=== PATIENT | female | born 1975 | race Caucasian/White ===

== ENCOUNTER 2020-05-09 11:40 | Outpatient (REF) | payer OTHER, SELFPAY ==
[2020-05-09 12:23] LABS: MANUAL DIFF FLAG NO
[2020-05-09 12:28] LABS: Basophils Absolute Auto 0.1 X10*3/uL (0.0-0.2); Basophils Percent Auto 0.7 % (0-2); Eosinophils Absolute Auto 0.1 X10*3/uL (0.0-0.4); Eosinophils Percent Auto 1.9 % (0-4); Hematocrit 39.6 % (37-47); Hemoglobin 13.3 g/dl (12.0-16.0); Imm Gran Abs Auto 0.04 X10*3/uL (0.00-0.03); Imm Gran Pct Auto 0.5 % (0.0-0.4); Lymphocytes Absolute Auto 2.6 X10*3/uL (1.2-4.9); Lymphocytes Percent Auto 35.1 % (20-40); Mean Corpuscular HGB Conc 33.6 g/dl (31.0-35.0); Mean Corpuscular Hemoglobin 30.1 pg (27.0-33.0); Mean Corpuscular Volume 89.6 fL (80-98); Mean Platelet Volume 9.3 fL (9.4-12.3); Monocytes Absolute Auto 0.5 X10*3/uL (0.1-1.2); Monocytes Percent Auto 6.3 % (2-11); Neutrophils Absolute Auto 4.2 X10*3/uL (2.0-8.3); Neutrophils Percent Auto 55.5 % (45-73); Platelet Count 336 X10*3/uL (160-400); Red Blood Count 4.42 X10*6/uL (4.20-5.50); Red Cell Distribution Width 11.9 % (11.0-16.0); White Blood Count 7.5 X10*3/uL (4.8-10.8)
[2020-05-09 12:48] LABS: Glucose Urine UA NEG (NEG); Leukocyte Esterase Urine NEG (NEG); Nitrite Urine NEG (NEG); PH 5.5 (5.0-8.0); Urine Blood NEG (NEG); Urine Ketones NEG (NEG); Urine Protein NEG (NEG-TRACE)
[2020-05-09 12:53] LABS: Alanine Aminotransferase 13 U/L (0-31); Albumin Level 4.4 g/dL (3.5-5.0); Alkaline Phosphatase 44 U/L (39-117); Anion Gap 11 (12-20); Aspartate Amino Transferase 13 U/L (5-31); Bilirubin Total 0.6 mg/dL (0.0-1.0); Blood Urea Nitrogen 11 mg/dL (9-16); Calcium 9.2 mg/dL (8.4-10.2); Carbon Dioxide 27 mmol/L (22-29); Chloride 102 mmol/L (96-108); Cholesterol 189 mg/dL; Estimated Glomerular Filt Rate > 60; Glucose Fasting 97 mg/dL (60-99); HDL Cholesterol 51 mg/dL; LDL Cholesterol Calculated 124 mg/dl; Potassium 4.8 mmol/l (3.3-5.1); Sodium 135 mmol/L (135-145); Total Protein 7.4 g/dL (6.5-8.0); Triglycerides 74 mg/dL
[2020-05-09 12:55] LABS: Appearance Urine HAZY; Color Urine YELLOW
== END 2020-05-09 11:41 | disposition home or self-care (01) ==
LOC: HO.LAB 11:40
PROVIDERS: PCP Internal Medicine; Visit Provider Internal Medicine
DX: Z00.00 Encounter for general adult medical examination without abnormal findings (principal); G35 Multiple sclerosis
CPT/HCPCS: 36415; 80053; 80061; 81003; 85025

== ENCOUNTER 2021-05-21 10:17 | Outpatient (REF) | payer OTHER, SELFPAY ==
[2021-05-21 10:20] LABS: MANUAL DIFF FLAG NO
[2021-05-21 10:37] LABS: Basophils Absolute Auto 0.1 X10*3/uL (0.0-0.2); Basophils Percent Auto 0.8 % (0-2); Eosinophils Absolute Auto 0.2 X10*3/uL (0.0-0.4); Eosinophils Percent Auto 2.9 % (0-4); Hematocrit 40.5 % (37-47); Hemoglobin 13.4 g/dl (12.0-16.0); Imm Gran Abs Auto 0.06 X10*3/uL (0.00-0.03); Imm Gran Pct Auto 0.8 % (0.0-0.4); Lymphocytes Absolute Auto 2.3 X10*3/uL (1.2-4.9); Lymphocytes Percent Auto 30.3 % (20-40); Mean Corpuscular HGB Conc 33.1 g/dl (31.0-35.0); Mean Corpuscular Hemoglobin 30.5 pg (27.0-33.0); Mean Corpuscular Volume 92.3 fL (80-98); Mean Platelet Volume 9.5 fL (9.4-12.3); Monocytes Absolute Auto 0.6 X10*3/uL (0.1-1.2); Monocytes Percent Auto 7.7 % (2-11); Neutrophils Absolute Auto 4.4 X10*3/uL (2.0-8.3); Neutrophils Percent Auto 57.5 % (45-73); Platelet Count 335 X10*3/uL (160-400); Red Blood Count 4.39 X10*6/uL (4.20-5.50); Red Cell Distribution Width 12.8 % (11.0-16.0); White Blood Count 7.6 X10*3/uL (4.8-10.8)
[2021-05-21 10:59] LABS: Appearance Urine HAZY; Color Urine YELLOW; Glucose Urine UA NEG (NEG); Leukocyte Esterase Urine NEG (NEG); Nitrite Urine NEG (NEG); PH 5.5 (5.0-8.0); Specific Gravity - Urine >= 1.030 (1.005-1.025); Urine Blood NEG (NEG); Urine Ketones NEG (NEG); Urine Protein TRACE MG/DL (NEG-TRACE)
[2021-05-21 11:04] LABS: Alanine Aminotransferase 13 U/L (0-31); Albumin Level 4.1 g/dL (3.5-5.0); Alkaline Phosphatase 38 U/L (39-117); Anion Gap 12 (12-20); Aspartate Amino Transferase 13 U/L (5-31); Bilirubin Total 0.6 mg/dL (0.0-1.0); Blood Urea Nitrogen 11 mg/dL (9-16); Carbon Dioxide 26 mmol/L (22-29); Chloride 107 mmol/L (96-108); Cholesterol 183 mg/dL; Estimated Glomerular Filt Rate > 60; Glucose Fasting 97 mg/dL (60-99); HDL Cholesterol 52 mg/dL; LDL Cholesterol Calculated 113 mg/dl; Potassium 4.6 mmol/L (3.3-5.1); Sodium 140 mmol/L (135-145); Triglycerides 92 mg/dL
== END 2021-05-21 10:18 | disposition home or self-care (01) ==
LOC: HO.LNP 10:17
PROVIDERS: Visit Provider Internal Medicine
DX: Z00.00 Encounter for general adult medical examination without abnormal findings (principal); G35 Multiple sclerosis
CPT/HCPCS: 80053; 80061; 81003; 85025

== ENCOUNTER 2022-05-21 15:38 | Outpatient (REF) | payer OTHER, SELFPAY ==
[2022-05-21 15:41] LABS: MANUAL DIFF FLAG NO
[2022-05-21 15:46] LABS: Basophils Absolute Auto 0.1 X10*3/uL (0.0-0.2); Basophils Percent Auto 0.7 % (0-2); Eosinophils Absolute Auto 0.1 X10*3/uL (0.0-0.4); Eosinophils Percent Auto 1.3 % (0-4); Hematocrit 37.9 % (37.0-47.0); Hemoglobin 13.2 g/dl (12.0-16.0); Imm Gran Abs Auto 0.05 X10*3/uL (0.00-0.03); Imm Gran Pct Auto 0.7 % (0.0-0.4); Lymphocytes Absolute Auto 2.4 X10*3/uL (1.2-4.9); Lymphocytes Percent Auto 31.7 % (20-40); Mean Corpuscular HGB Conc 34.8 g/dl (31.0-35.0); Mean Corpuscular Hemoglobin 31.8 pg (27.0-33.0); Mean Corpuscular Volume 91.3 fL (80.0-98.0); Mean Platelet Volume 9.6 fL (9.4-12.3); Monocytes Absolute Auto 0.5 X10*3/uL (0.1-1.2); Monocytes Percent Auto 6.3 % (2-11); Neutrophils Absolute Auto 4.6 x10*3/uL (2.0-8.3); Neutrophils Percent Auto 59.3 % (45-73); Platelet Count 346 X10*3/uL (160-400); Red Blood Count 4.15 X10*6/uL (4.20-5.50); Red Cell Distribution Width 12.7 % (11.0-16.0); White Blood Count 7.7 X10*3/uL (4.8-10.8)
[2022-05-21 15:50] LABS: Appearance Urine Cloudy; Color Urine Yellow; Glucose Urine UA Negative (Negative); Leukocyte Esterase Urine Negative (Negative); Nitrite Urine Negative (Negative); PH 5.5 (5.0-9.0); Specific Gravity - Urine <= 1.005 (1.005-1.025); Urine Blood Negative (Negative); Urine Ketones Negative (Negative); Urine Protein Negative (Neg-Trace)
[2022-05-21 15:58] LABS: Bacteria Urine 2+ (None Seen); Hyaline Casts Urine 0-2 /LPF (0-2); RBC Urine 0-2 /HPF (0-2); Squamous Epithelial Cell Urine >20 /HPF (0-2); WBC Urine 0-5 /HPF (0-5)
[2022-05-21 16:01] LABS: Alanine Aminotransferase 12 U/L (0-31); Albumin Level 4.4 g/dL (3.5-5.0); Alkaline Phosphatase 40 U/L (39-117); Anion Gap 15 (12-20); Aspartate Amino Transferase 12 U/L (5-31); Bilirubin Total 0.4 mg/dL (0.0-1.0); Blood Urea Nitrogen 12 mg/dL (9-16); Calcium 9.1 mg/dL (8.4-10.2); Carbon Dioxide 22 mmol/L (22-29); Chloride 100 mmol/L (96-108); Cholesterol 199 mg/dL; Estimated Glomerular Filt Rate > 60; Glucose Fasting 93 mg/dL (60-99); HDL Cholesterol 55 mg/dL; LDL Cholesterol Calculated 132 mg/dl; Sodium 133 mmol/L (135-145); Total Protein 7.5 g/dL (6.5-8.0); Triglycerides 63 mg/dL
== END 2022-05-21 15:39 | disposition home or self-care (01) ==
LOC: HO.LNP 15:38
PROVIDERS: Visit Provider Internal Medicine
DX: Z00.00 Encounter for general adult medical examination without abnormal findings (principal); G35 Multiple sclerosis
CPT/HCPCS: 80053; 80061; 81001; 85025

== ENCOUNTER 2023-06-10 11:48 | Outpatient (REF) | payer SELFPAY ==
[2023-06-10 11:52] LABS: MANUAL DIFF FLAG NO
[2023-06-10 12:16] LABS: Appearance Urine Clear; Color Urine Yellow; Glucose Urine UA Negative (Negative); Leukocyte Esterase Urine Negative (Negative); Nitrite Urine Negative (Negative); PH 5.5 (5.0-9.0); Specific Gravity - Urine 1.025 (1.005-1.025); Urine Blood Negative (Negative); Urine Ketones Negative (Negative); Urine Protein Negative (Neg-Trace)
[2023-06-10 12:19] LABS: Basophils Absolute Auto 0.1 X10*3/uL (0.0-0.2); Basophils Percent Auto 0.9 % (0-2); Eosinophils Absolute Auto 0.2 X10*3/uL (0.0-0.4); Hematocrit 41.3 % (37.0-47.0); Hemoglobin 13.8 g/dl (12.0-16.0); Imm Gran Abs Auto 0.03 X10*3/uL (0.00-0.03); Imm Gran Pct Auto 0.5 % (0.0-0.4); Lymphocytes Percent Auto 36.2 % (20-40); Mean Corpuscular HGB Conc 33.4 g/dl (31.0-35.0); Mean Corpuscular Hemoglobin 30.1 pg (27.0-33.0); Mean Corpuscular Volume 90.2 fL (80.0-98.0); Mean Platelet Volume 9.3 fL (9.4-12.3); Monocytes Absolute Auto 0.4 X10*3/uL (0.1-1.2); Monocytes Percent Auto 6.9 % (2-11); Neutrophils Percent Auto 52.5 % (45-73); Platelet Count 351 X10*3/uL (160-400); Red Blood Count 4.58 X10*6/uL (4.20-5.50); Red Cell Distribution Width 13.1 % (11.0-16.0); White Blood Count 5.6 X10*3/uL (4.8-10.8)
[2023-06-10 12:42] LABS: Alanine Aminotransferase 14 U/L (0-31); Albumin Level 4.3 g/dL (3.5-5.0); Alkaline Phosphatase 48 U/L (39-117); Anion Gap 11 (12-20); Aspartate Amino Transferase 16 U/L (5-31); Bilirubin Total 0.3 mg/dL (0.0-1.0); Blood Urea Nitrogen 12 mg/dL (9-16); Carbon Dioxide 26 mmol/L (22-29); Chloride 105 mmol/L (96-108); Cholesterol 209 mg/dL (<200); Estimated Glomerular Filt Rate > 60; Glucose Fasting 98 mg/dL (60-99); HDL Cholesterol 57 mg/dL (>40); LDL Cholesterol Calculated 139 mg/dL (<100); Potassium 3.8 mmol/L (3.3-5.1); Sodium 138 mmol/L (135-145); Total Protein 7.7 g/dL (6.5-8.0); Triglycerides 68 mg/dL (<150)
[2023-06-10 12:48] LABS: Vitamin D 25-OH Total 49.7 ng/mL (>30)
== END 2023-06-10 11:49 | disposition home or self-care (01) ==
LOC: HO.LNP 11:48
PROVIDERS: Visit Provider Internal Medicine
DX: Z00.00 Encounter for general adult medical examination without abnormal findings (principal)
CPT/HCPCS: 80053; 80061; 81003; 82306; 85025

== ENCOUNTER 2024-07-06 14:31 | Outpatient (REF) | payer OTHER, SELFPAY ==
[2024-07-06 14:34] LABS: MANUAL DIFF FLAG NO
[2024-07-06 14:50] LABS: Appearance Urine Clear; Color Urine Yellow; Glucose Urine UA Negative (Negative); Leukocyte Esterase Urine Negative (Negative); Nitrite Urine Negative (Negative); PH 5.5 (5.0-9.0); Specific Gravity - Urine 1.015 (1.005-1.025); Urine Blood Negative (Negative); Urine Ketones 15 mg/dL (Negative); Urine Protein Negative (Neg-Trace)
[2024-07-06 14:53] LABS: Bacteria Urine 1+ (None Seen); Hyaline Casts Urine 0-2 /LPF (0-2); RBC Urine 0-2 /HPF (0-2); WBC Urine 0-5 /HPF (0-5)
[2024-07-06 14:58] LABS: Alanine Aminotransferase 18 U/L (0-31); Albumin Level 4.2 g/dL (3.5-5.0); Alkaline Phosphatase 45 U/L (39-117); Anion Gap 11 (12-20); Aspartate Amino Transferase 22 U/L (5-31); Bilirubin Total 0.8 mg/dL (0.0-1.0); Blood Urea Nitrogen 12 mg/dL (9-16); Calcium 8.9 mg/dL (8.4-10.2); Carbon Dioxide 27 mmol/L (22-29); Chloride 103 mmol/L (96-108); Cholesterol 181 mg/dL (<200); Estimated Glomerular Filt Rate > 60; Glucose Fasting 95 mg/dL (60-99); HDL Cholesterol 46 mg/dL (>40); LDL Cholesterol Calculated 115 mg/dL (<100); Potassium 4.3 mmol/L (3.3-5.1); Sodium 137 mmol/L (135-145); Total Protein 7.6 g/dL (6.5-8.0); Triglycerides 100 mg/dL (<150)
[2024-07-06 15:03] LABS: Basophils Absolute Auto 0.1 X10*3/uL (0.0-0.2); Basophils Percent Auto 0.8 % (0-2); Eosinophils Absolute Auto 0.1 X10*3/uL (0.0-0.4); Eosinophils Percent Auto 2.1 % (0-4); Hematocrit 41.1 % (37.0-47.0); Hemoglobin 13.7 g/dl (12.0-16.0); Imm Gran Abs Auto 0.04 X10*3/uL (0.00-0.03); Imm Gran Pct Auto 0.7 % (0.0-0.4); Lymphocytes Absolute Auto 1.6 X10*3/uL (1.2-4.9); Lymphocytes Percent Auto 26.9 % (20-40); Mean Corpuscular HGB Conc 33.3 g/dl (31.0-35.0); Mean Corpuscular Hemoglobin 30.4 pg (27.0-33.0); Mean Corpuscular Volume 91.3 fL (80.0-98.0); Mean Platelet Volume 9.5 fL (9.4-12.3); Monocytes Absolute Auto 0.5 X10*3/uL (0.1-1.2); Monocytes Percent Auto 8.4 % (2-11); Neutrophils Absolute Auto 3.7 x10*3/uL (2.0-8.3); Neutrophils Percent Auto 61.1 % (45-73); Platelet Count 321 X10*3/uL (160-400); Red Cell Distribution Width 12.8 % (11.0-16.0); White Blood Count 6.1 X10*3/uL (4.8-10.8)
== END 2024-07-06 14:32 | disposition home or self-care (01) ==
LOC: HO.LNP 14:31
PROVIDERS: Visit Provider Internal Medicine
DX: Z00.00 Encounter for general adult medical examination without abnormal findings (principal); Z13.6 Encounter for screening for cardiovascular disorders; G35 Multiple sclerosis
CPT/HCPCS: 80053; 80061; 81001; 85025

== ENCOUNTER 2024-07-07 06:56 | Day surgery (SDC) | payer OTHER, SELFPAY ==
[2024-07-05 13:49] VITALS: BMI 35.5
[2024-07-05 14:27] VITALS: BMI 32.7
--- NOTE | 2024-07-06 09:56 | P.CONAN_ITS ---
Documented by User: Mariola Banerjee NP 07/06/24 10:00 HPI - Anesthesia Eval Consult details Narrative: 49yo F for Colonoscopy PMFSH Past Medical History Medical History Anxiety Environmental and seasonal allergies Multiple sclerosis Surgical History Surgical History Hx of wisdom tooth extraction (~1992) Social History Social History (Updated 07/05/24 @ 14:29 by Jackie Ortiz RN) Are you a primary resident care manager rn to a significant other at home: No Do you presently have visiting nurse or other home services: No Patient Tobacco Use Status: Former Tobacco user Tobacco use type: Cigarette Use of substances other than those prescribed or required for medical reasons: No Have you been hit, kicked, punched, or otherwise hurt by someone within the past year? If so, by whom?: No Are you DNR?: No Advance Directives: No Advance Directives Information Provided: Yes Recently lost weight without trying: No Nutrition Risks: No Nutritional Risk Patient : No FDLMP: 06/10/2024 : No Poor oral hygiene: No Meds Allergies Allergy/AdvReac Type Severity Reaction Status Date / Time bee pollen [bee stings] Allergy Severe Anaphylaxis Verified 07/05/24 14:24 cephalexin Allergy Severe Hives Verified 07/05/24 14:24 Home Medications ?Medication ?Instructions ?Recorded ?Confirmed ?Last Taken ?Type cholecalciferol (vitamin D3) 50 50 mcg PO DAILY 07/05/24 07/05/24 Unknown History mcg (2,000 unit) capsule (Vitamin D3) loratadine 10 mg tablet 10 mg PO DAILY 07/05/24 07/05/24 Unknown History lysine 500 mg tablet 500 mg PO DAILY 07/05/24 07/05/24 Unknown History magnesium 250 mg tablet 250 mg PO DAILY 07/05/24 07/05/24 Unknown History turmeric 400 mg capsule mg PO 07/05/24 07/05/24 Unknown History zinc gluconate 22.5 mg tablet 45 mg PO DAILY 07/05/24 07/05/24 Unknown History Exam Height,Weight and Vital Signs: Height 5 ft 4.75 in Weight 88.451 kg Assessment and Plan Assessment Anesthesia Assessment: Chart Reviewed Documented by User: Robin Whittaker MD 07/07/24 07:48 PMFSH Past Medical History Medical History Anxiety Environmental and seasonal allergies Multiple sclerosis Family History Family history of problems with anesthesia: No Surgical History Surgical History Hx of wisdom tooth extraction (~1992) History of Problems with Anesthesia: No Social History Social History (Updated 07/05/24 @ 14:29 by Jackie Ortiz RN) Are you a primary resident care manager rn to a significant other at home: No Do you presently have visiting nurse or other home services: No Patient Tobacco Use Status: Former Tobacco user Tobacco use type: Cigarette Use of substances other than those prescribed or required for medical reasons: No Have you been hit, kicked, punched, or otherwise hurt by someone within the past year? If so, by whom?: No Are you DNR?: No Advance Directives: No Advance Directives Information Provided: Yes Recently lost weight without trying: No Nutrition Risks: No Nutritional Risk Patient : No FDLMP: 06/10/2024 : No Poor oral hygiene: No Meds Allergies Allergy/AdvReac Type Severity Reaction Status Date / Time bee pollen [bee stings] Allergy Severe Anaphylaxis Verified 07/05/24 14:24 cephalexin Allergy Severe Hives Verified 07/05/24 14:24 Home Medications ?Medication ?Instructions ?Recorded ?Confirmed ?Last Taken ?Type cholecalciferol (vitamin D3) 50 50 mcg PO DAILY 07/05/24 07/05/24 Unknown History mcg (2,000 unit) capsule (Vitamin D3) loratadine 10 mg tablet 10 mg PO DAILY 07/05/24 07/05/24 Unknown History lysine 500 mg tablet 500 mg PO DAILY 07/05/24 07/05/24 Unknown History magnesium 250 mg tablet 250 mg PO DAILY 07/05/24 07/05/24 Unknown History turmeric 400 mg capsule mg PO 07/05/24 07/05/24 Unknown History zinc gluconate 22.5 mg tablet 45 mg PO DAILY 07/05/24 07/05/24 Unknown History Exam Airway Mallampati Class: II TM Dist: >3cm Neck ROM: Full Assessment and Plan Assessment Anesthesia Assessment: Anesthesia Plan Discussed Final Anesthetic Review Family History of Problems with Anesthesia: No History of Problems with Anesthesia: No NPO: Yes ASA Class: II Final Preanesthetic Review: No Changes in Pt Med Stat, Meds/Allgs Chart Reviewed, Consent Obtained/Reviewed and Anes Risks/Benef Reviewed Patient Risk: Low Procedure Risk: Low Anesthetic Plan Anesthetic Plan: TIVA Disposition: Standard PACU
[2024-07-07 07:09] VITALS: BMI 34.9
[2024-07-07 07:25] VITALS: BP 128/81; PULSE 68; RESP 16; TEMP 36.6; O2SAT 98
[2024-07-07] MEDS: Lactated Ringers 1,000 ML 100 ML IVCONT (07:34)
[2024-07-07 07:45] LABS: UPreg QC Valid YES; Urine Pregnancy NEGATIVE (NEGATIVE)
[2024-07-07 09:40] VITALS: BP 123/50; PULSE 75; RESP 16; TEMP 36.1; O2SAT 99
--- NOTE | 2024-07-07 09:42 | PM.OP ---
Brief Operative Note Date of Service: 07/07/24 Pre-op diagnosis: Screening Post-op diagnosis: other (Polyps) Procedure: Colonoscopy to the cecum and TI with hot snare polypectomy x 2, and marking with submucosal ink of the distal ascending colon polyp site Surgeon: Baldev Walters MD Anesthesia: MAC Was an Slice Plug Cutter Operator used for this Procedure?: No Estimated blood loss (mL): 0 Pathology: other (A. Distal ascending colon polyp B. Transverse colon polyp) Condition: stable Disposition: PACU
[2024-07-07 09:55] VITALS: BP 129/83; PULSE 65; RESP 18; O2SAT 99
--- NOTE | 2024-07-07 09:59 | OP_ITS ---
DATE OF SERVICE: 07/07/2024 SURGEON: Baldev Walters MD PREOPERATIVE DIAGNOSIS: Colorectal cancer screening. POSTOPERATIVE DIAGNOSIS: PROCEDURE PERFORMED: Colonoscopy to the cecum and terminal ileum with hot snare polypectomy x 2 with placement of submucosal ink markings at the site of the distal ascending colon polyp. Full consent has been obtained from her for this, including risks of bleeding and perforation. ESTIMATED BLOOD LOSS: COMPLICATIONS: ANESTHESIA: Monitored anesthesia care. ASSISTANTS: SPECIMENS: POSTOPERATIVE DIAGNOSES: Colorectal cancer screening, colon polyps, diverticulosis, and internal hemorrhoids. DESCRIPTION OF PROCEDURE: The patient was placed in the left lateral decubitus position. The digital rectal exam revealed no abnormalities. The [employer] video pediatric colonoscope was then entered into the rectum and advanced easily to the cecum. Once in the cecum, I did identify normal-appearing cecal pouch with appendiceal orifice and a normal-appearing ileocecal valve. The terminal ileum was cannulated and appeared normal. The scope was withdrawn back in the colon. The entire cecum and ileocecal valve appeared normal. The scope was slowly withdrawn assessing all mucosal surfaces carefully. Preparation was excellent. In the region of the distal ascending colon, was an approximately 15 mm flat, but raised, grossly serrated polyp. The majority of this was removed by hot snare polypectomy and recovered with a retrieval net. The scope was withdrawn from the patient. The scope was advanced back to the polypectomy site, though initially it was difficult to locate the polypectomy site. Once the polypectomy site was located, there was some residual polyp tissue on the edge and this was cauterized and removed with the tip of the snare. I did place a submucosal ink mervat just proximal and just distal to the lesion. The polypectomy site otherwise appeared clean, without any sign of residual polyp nor bleeding. In the transverse colon, was an approximately 12 mm polyp, which was removed by hot snare polypectomy and recovered by suction. The polypectomy site appeared clean, without any sign of residual polyp nor bleeding. I did not visualize any other polyps, colitis, nor angiodysplasias. There was a mild amount of sigmoid diverticulosis. In the rectum, the scope was retroflexed, visualizing internal hemorrhoids, but no other pathology. The rectal mucosa appeared normal. The scope was straightened and withdrawn from the patient. She tolerated the procedure well and was returned to the recovery area in stable condition. IMPRESSION: 1. Colon polyps. 2. Diverticulosis. 3. Internal hemorrhoids. PLAN: The results of the pathology will be checked. If the ascending colon polyp is a serrated polyp, I would recommend a repeat colonoscopy in 1 year. If the polyp in the ascending colon is a tubular adenoma, I would recommend a followup colonoscopy in 1 year as well. If it happens to just be hyperplastic and the transverse colon polyp is adenomatous, I would then recommend a followup colonoscopy in 3 years. She was advised not to use any aspirin or NSAIDs for 1 week. MD VIKY Regalado/WEST / [id number] MTDAlvarez
[2024-07-07 10:10] VITALS: BP 133/76; PULSE 57; RESP 18; TEMP 36.1; O2SAT 100
== END 2024-07-07 10:37 | disposition home or self-care (01) ==
PROVIDERS: Nurse Practitioner; PCP Internal Medicine; Visit Provider Internal Medicine
PROC: 0DJD8ZZ Inspection of Lower Intestinal Tract, Via Natural or Artificial Opening Endoscopic (ICD-10-PCS; CPT 45378; principal; 2024-07-07 08:20)
DX: Z12.11 Encounter for screening for malignant neoplasm of colon (principal); D12.2 Benign neoplasm of ascending colon; K63.5 Polyp of colon; K57.30 Diverticulosis of large intestine without perforation or abscess without bleeding; K64.8 Other hemorrhoids; G35 Multiple sclerosis; Z79.899 Other long term (current) drug therapy
CPT/HCPCS: 45385; 45381; 81025; 88305; J2003; J2704

== ENCOUNTER 2025-06-29 12:50 | Outpatient (REF) | payer OTHER, SELFPAY ==
--- OUTSIDE RECORDS SUMMARY | 2024-07-06 02:15 | XMS_ITS ---
Author Organization Erik Martinez MD Address [address] [place], [place] [id number] Care Team Providers Care Receiver Bulk System Name Role Phone Erik Martinez Primary Care Provider [phone] Results Component Value Reference Range Notes Complete Blood Count Auto Di ff Reviewed date:07/06/2024 05:11:16 PM Interpretation: Performing Lab:[facility], [address] [place] [phone] Notes/Report: White Blood Count 6.1 4.8-10.8 X10*3/uL Red Blood Count 4.50 4.20-5.50 X10*6/uL Hemoglobin 13.7 12.0-16.0 g/dl Hematocrit 41.1 37.0-47.0 % Mean Corpuscular Volume 91.3 80.0-98.0 fL Mean Corpuscular Hemoglobin 30.4 27.0-33.0 pg Mean Corpuscular HGB Conc 33.3 31.0-35.0 g/dl Red Cell Distribution Width 12.8 11.0-16.0 % Platelet Count 321 160-400 X10*3/uL Mean Platelet Volume 9.5 9.4-12.3 fL Neutrophils Percent Auto 61.1 45-73 % Imm Gran Pct Auto 0.7 0.0-0.4 % Lymphocytes Percent Auto 26.9 20-40 % Monocytes Percent Auto 8.4 2-11 % Eosinophils Percent Auto 2.1 0-4 % Basophils Percent Auto 0.8 0-2 % NRBC Pct Auto 0.0 0.0-0.2 /100WBC Neutrophils Absolute Auto 3.7 2.0-8.3 x10*3/u L Imm Gran Abs Auto 0.04 0.00-0.03 X10*3/uL Lymphocytes Absolute Auto 1.6 1.2-4.9 X10*3/u L Monocytes Absolute Auto 0.5 0.1-1.2 X10*3/uL Eosinophils Absolute Auto 0.1 0.0-0.4 X10*3/u L Basophils Absolute Auto 0.1 0.0-0.2 X10*3/uL NRBC Abs Auto 0.000 0.0-0.012 X10*3/uL Comprehensive [place]. Panel Fa st Reviewed date:07/06/2024 05:11:31 PM Interpretation: Performing Lab:[facility], [address] [place] [phone] Notes/Report: Sodium 137 135-145 mmol/L Potassium 4.3 3.3-5.1 mmol/L Chloride 103 96-108 mmol/L Carbon Dioxide 27 22-29 mmol/L Anion Gap 11 12-20 Blood Urea Nitrogen 12 9-16 mg/dL Creatinine 0.83 0.5-1.4 mg/dL Estimated Glomerular Filt Rate > 60 Chronic Kidney Disease: Estimated GFR < 60 mL/min/1.73m2 Severe Kidney Disease: Estimated GFR < 15 mL/min/1.73m2 Glucose Fasting 95 60-99 mg/dL Calcium 8.9 8.4-10.2 mg/dL Bilirubin Total 0.8 0.0-1.0 mg/dL Aspartate Amino Transferase 22 5-31 U/L Alanine Aminotransferase 18 0-31 U/L Total Protein 7.6 6.5-8.0 g/dL Albumin Level 4.2 3.5-5.0 g/dL Alkaline Phosphatase 45 39-117 U/L Lipid Panel Reviewed date:07/06/2024 05:04:29 PM Interpretation: Performing Lab:[facility], [address] [place] [phone] Notes/Report: Triglycerides 100 <150 mg/dL Desirable Triglyceride: less than 150 mg/dL Borderline High Triglyceride 150-199 mg/dL High Triglyceride: 200-499 mg/dL Very High Triglyceride: greater than or equal to 5OO mg/dL Cholesterol 181 <200 mg/dL Desirable Cholesterol: less than 200 mg/dL Borderline High Cholesterol: 200-239 mg/dL High Cholesterol: greater than 239 mg/dL LDL Cholesterol Calculated 115 <100 mg/dL Desirable LDL: less than 100 mg/dL Near Optimal/Above Optimal LDL: 110-129 mg/dL Borderline High LDL: 130-159 mg/dL High LDL: 160-189 mg/dL Very High LDL: greater than or equal to 190 mg/dL HDL Cholesterol 46 >40 mg/dL Desirable HDL: greater than 40 mg/dL Note: This HDL assay may give artificially low results in patients with liver disease. UA ClnCatch+Micro w/rflx Cul t Reviewed date:07/06/2024 05:11:49 PM Interpretation: Performing Lab:[facility], [address] [place] [phone] Notes/Report: Urine, Clean Catch Color Urine Yellow Appearance Urine Clear PH 5.5 5.0-9.0 Glucose Urine UA Negative Negative mg/dL Urine Blood Negative Negative Specific [place] - Urine 1.015 1.005-1.025 Urine Protein Negative Neg-Trace mg/dL Urine Ketones 15 Negative mg/dL Nitrite Urine Negative Negative Leukocyte Esterase Urine Negative Negative RBC Urine 0-2 0-2 /HPF WBC Urine 0-5 0-5 /HPF Squamous Epithelial Cell Urine 6-10 0-2 /HPF Bacteria Urine 1+ None Seen Hyaline Casts Urine 0-2 0-2 /LPF REASON FOR VISIT FASTING LABS Immunizations Vaccine Route Administration Date Status Comme nts Fluarix Quadrivalent - 150 IM Intramuscular 07/06/2024 Adm inistered Encounters Encounter Location Date Provider Diagnosis Erik Martinez MD [address] [place], [place] [phone] 07/06/2024 Erik Martinez Blood tests for routine general physical examination Z00.00 ; Encounter for immunization Z23 and Multiple sclerosis G35 Assessments Encounter Date Diagnosis (ICD Code) Assessment Notes Treatment Notes Treatment Clinical Notes Section Notes 07/06/2024 Blood tests for routine general physical examination (ICD-10 - Z00.00) 07/06/2024 Encounter for immunization (ICD-10 - Z23) 07/06/2024 Multiple sclerosis (ICD-10 - G35) Plan Of Treatment Next Appt Details Provider Name:Erik Joaquni ier, 07/14/2025 02:30:00 PM, [address], [address], [place], [place], [id number], Progress Notes * Kira FUENTESDOB:[birth year] (50 yo F)Acc No.[id number]:07/06/2024 Progress Note Patient: Kira MCKAY Provider: Nithya Martinez MD :1975 A ge:49 Y S ex:Female Date:07/06/2024 Address:[address] [place] [address], [id number] Subjective: * Chief Complaints: * 1 . FASTING LABS. * Medical History: Objective: * Vitals: Assessment: * Assessment: 1. E ncounter for immunization - Z23 (Primary) 2 . B lood tests for routine general physical examination - Z00.00 3 . M ultiple sclerosis - G35 ? Plan: * Treatment: 2. M ultiple sclerosis L AB: Complete Blood Count Auto Diff (Collection Date & Time - 07/06/2024 07:15 AM) L AB: Comprehensive [place]. Panel Fast (Collection Date & Time - 07/06/2024 07:15 AM) L AB: Lipid Panel (Collection Date & Time - 07/06/2024 07:15 AM) L AB: UA ClnCatch+Micro w/rflx Cult (Collection Date & Time - 07/06/2024 07:15 AM) * Immunizations: Fluarix Quadrivalent - 150 : 0.5 mL (Dose No:1) (Route: Intramuscular) given by Yin Navarro , Office Staff on Left Deltoid * Procedure Codes: 9 0656 FLU VACCINE NO PRESERV 3 & >, 29908 IMMUNIZATION ADMIN, 37595 VENIPUNCT, ROUTINE* * * The named appointment provid er may or may not be the originator of this progress note, and it is not deemed complete until electronically signed by the appointment provider. Sign off status: Pending * Provider: Nithya Martinez MD Date: 1 09/06/2023 Generated for Dulce Case/Carmelo on: 08/30/2024 03:11 PM EST
--- OUTSIDE RECORDS SUMMARY | 2024-07-07 03:20 | XMS_ITS ---
Author Organization [facility] Address [address] [place] [address] Care Team Providers Care Pick Up Truck Driver Name Role Phone Erik Martinez MD Primary Care Provider Baldev Lisa [phone] REASON FOR VISIT screening Problems Problem Type SNOMED Code ICD Code Onset Dates Problem Status W/U Status Risk Notes Problem Diverticular disease of colon (898926452) Diverticulosis of large intestine without perforation or abscess without bleeding (K57.30) Active confirmed Encounters Encounter Location Date Provider Diagnosis [facility] [address] [place], [place] [phone] 07/07/2024 Baldev Walters Colon cancer scree lissy Z12.11 ; Colon polyp K63.5 ; Diverticulosis of large intestine without perforation or abscess without bleeding K57.30 and Other hemorrhoids K64.8 Assessments Encounter Date Diagnosis (ICD Code) Assessment Notes Treatment Notes Treatment Clinical Notes Section Notes 07/07/2024 Colon cancer screening (ICD-10 - Z12.11) 07/07/2024 Colon polyp (ICD-10 - K63.5) 07/07/2024 Diverticulosis of large intestine without perforation or abscess without bleeding (ICD-10 - K57.30) 07/07/2024 Other hemorrhoids (ICD-10 - K64.8) Plan Of Treatment No Information Progress Notes * ALFREDOMALIKDOB:[birth year] (50 yo F)Acc No.[id number]:07/07/2024 COLON WITH MAC Patient: MALIK MCKAY Provider: Warren Walters MD :1975 A ge:49 Y S ex:Female Date:07/07/2024 Address:[address] [place], [place] [id number] Pcp:Erik Martinez MD Subjective: * Chief Complaints: * S creening Assessment: * Assessment: 1. C olon cancer screening - Z12.11 (Primary) 2 . C olon polyp - K63.5 3 . D iverticulosis of large intestine without perforation or abscess without bleeding - K57.30 4 . O ther hemorrhoids - K64.8 Plan: * Procedure Codes: 4 5385 LESION REMOVAL COLONOSCOPY, Modifiers: 33 35528 COLONOSCOPE, SUBMUCOUS INJ, Modifiers: 59 , 33 Billing Information: * Procedure Codes: 64156 LESION REMOVAL COLONOSCOPY. Modifiers: 33 42334 COLONOSCOPE, SUBMUCOUS INJ. Modifiers: 59, 33 * The named appointment provid er may or may not be the originator of this progress note, and it is not deemed complete until electronically signed by the appointment provider. Sign off status: Pending * Provider: Warren Walters MD Date: 09/07/2023 Generated for Dulce marrero/Antoine/eTransmitting on: 08/30/2024 03:11 PM EST
--- OUTSIDE RECORDS SUMMARY | 2024-07-12 04:30 | XMS_ITS ---
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 Name Role Phone Erik Martinez Primary Care Provider Allergies Allergen (clinical drug ingredient) Drug/Non Drug Allergy documented on EMR Reaction Allergy Type Onset Date Status clindamycin Clindamycin rash Drug Allergy Act sheila cephalexin Cephalexin hives Drug Allergy Activ e REASON FOR VISIT ANNUAL EXAM Medications Medication SIG (Take, Route, Frequency, Duration) Notes Start Date End Date Status ProAir HFA 108 (90 Base) MCG/ACT 2 puffs as needed Inhalation every 6 hrs for 30 days 01/05/2018 Not-Taking EpiPen 2-Leandro 0.3 MG/0.3ML as directed In jection once for 1 dose 05/04/2013 Active valACYclovir HCl 1 GM TAKE 2 TABLETS BY MOUTH TWICE A DAY FOR 1 DAY Orally twoce a day for 1 days Active Social History Tobacco Use: Social History Observation Description Date Details (start date - stop date) Former Smoker NA - NA Tobacco Use/Smoking Question Answer Notes Patient is a former smoker How long has it been since y ou last smoked? > 10 years Additional Findings: Tobacco Non-User Fo rmer smoker, currently using no form of tobacco Alcohol Screen Question Answer Notes Did you have a drink contain ing alcohol in the past year? Yes How often did you have a dri nk containing alcohol in the past year? Monthly or less (1 point) How many drinks did you have on a typical day when you were drinking in the past year? 1 or 2 drinks (0 point) How often did you have 6 or more drinks on one occasion in the past year? Never (0 point) Points 1 Interpretation Negative Vital Signs Blood pressure systolic 102 mm Hg 07/12/20 24 Blood pressure diastolic 70 mm Hg 024 Height 65 in 07/12/2024 Weight 206 lbs 07/12/2024 BMI 34.28 kg/m2 07/12/2024 Encounters Encounter Location Date Provider Diagnosis Erik Martinez MD [address] [place] [phone] 07/12/2024 Erik Martinez Mild intermittent asthma without complication J45.20 ; Annual physical exam Z00.00 ; Recurrent cold sores B00.1 and Depression screening Z13.31 Assessments Encounter Date Diagnosis (ICD Code) Assessment Notes Treatment Notes Treatment Clinical Notes Section Notes 07/12/2024 Mild intermittent asthma without complication (ICD-10 - J45.20) stable, will continue current regtiment 07/12/2024 Annual physical exam (ICD-10 - Z00.00) labs reviewed and discused with patient 07/12/2024 Recurrent cold sores (ICD-10 - 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) will cntinue current regiment 07/12/2024 Depression screening (ICD-10 - Z13.31) negative screen Plan Of Treatment Medication Medication Name Sig Start Date Stop Date Notes EpiPen 2-Leandro 0.3 MG/0.3ML as directed In jection once for 1 dose 05/04/2013 valACYclovir HCl 1 GM TAKE 2 TABLETS BY MOUTH TWICE A DAY FOR 1 DAY Orally twoce a day for 1 days Treatment Notes Assessment Notes Mild intermittent asthma without complic ation stable, will continue current regtiment Annual physical exam labs reviewed and d iscused with patient Recurrent cold sores will cntinue curren t regiment Depression screening negative screen Next Appt Details Follow Up: 1 Year, Reason: Provider Name:Erik garcía, 07/14/2025 02:30:00 PM, [address], [address], [place], [place], [phone], Progress Notes * Kira FUENTESDOB:[birth year] (49 yo F)Acc No.[id number]:07/12/2024 Progress Notes Patient: Kira Dutta Provider: Nithya Martinez MD :1975 A ge:49 Y S ex:Female Date:07/12/2024 Address:[id number] Subjective: * Chief Complaints: * A NNUAL EXAM * HPI: D epression Screening: PHQ-9 L ittle interest or pleasure in doing things N ot at all, F eeling down, depressed, or hopeless N ot at all, T rouble falling or staying asleep, or sleeping too much N ot at all, F eeling tired or having little energy N ot at all, P oor appetite or overeating N ot at all, F eeling bad about yourself or that you are a failure, or have let yourself or your family down N ot at all, T rouble concentrating on things, such as reading the newspaper or watching television N ot at all, M oving or speaking so slowly that other people could have noticed; or the opposite, being so fidgety or restless that you have been moving around a lot more than usual N ot at all, T houghts that you would be better off or of hurting yourself in some way N ot at all, T otal Score 0 . I nterpretation and Intervention D epression Screening Findings N egative, F ollow-Up for Depression : review of PHQ-9 found negative result, no follow-up needed. C ommunication Needs: Communication Needs D oes the patient have a hearing impairment N o, D oes the patient have a vision impairment? Y es, I f yes, what is the vision impairment? G lasses, D oes the patient have a cognition impairment? N o. S ARJUN Questions: SDOH Questions I n the past year have you been worried about losing housing? N o, I n the past year have you or any family members you live with been unable to get any of the following when it was really needed? Check all that apply: N one. S ymptom(s): patient is a 49 yo female here for yearly exam with review of recent labs and follow up of chronic issues. had sessile serrated polyp and needs repeat colonoscopy in one year. * ROS: G eneral/Constitutional: Patient denies f atigue , headache. C hange in appetite?denies. C hills d enies. F ever d enies. O phthalmologic: Blurred vision d enies. D ischarge d enies. P ain d enies. E NT: Patient denies d ecreased sense of smell , any loss of taste , sore throat. D ecreased hearing d enies. S ore throat d enies. S wollen glands d enies. E ndocrine: Cold intolerance d enies. E xcessive thirst d enies. H eat intolerance d enies. W eight loss d enies. R espiratory: Cough d enies. S hortness of breath at rest d enies. S hortness of breath with exertion d enies. W heezing d enies. C ardiovascular: Chest pain at rest d enies. C hest pain with exertion?denies. I rregular heartbeat d enies. S hortness of breath d enies. ? G astrointestinal: Abdominal pain d enies. C hange in bowel habits d enies. D iarrhea d enies. N ausea d enies. R ectal bleeding d enies. V omiting d enies . G enitourinary: Blood in urine d enies. D ifficulty urinating d enies. F requent urination d enies. U rinary incontinence D enies. M usculoskeletal: Patient denies m uscle aches. P ainful joints d enies. W eakness d enies. P eripheral Vascular: Patient denies r ed and blue toes. S kin: Dry skin d enies. I tching d enies. D enies?Mole(s), changes in moles, new moles or any lesions of concern. D enies P hotosensitivity. R candis d enies. N eurologic: Dizziness d enies. F ainting d enies. H eadache?denies. * Medical History: * Surgical History: * Hospitalization/Major Diagno stic Procedure: * Family History: F ather: 48 yrs, alcohol abuse, asthma. M other: alive 78 yrs, arthritis, diagnosed with Hypertension, Cancer. P aternal Grand Mother: alive. 1 brother(s) - healthy. . Father- Pneumonia , Denies mental health/substance abuse family history, No pertinent family medical history Father alcoholic Mother Breast Cancer, Denies mental health/substance abuse family history, No pertinent family medical history, No pertinent family medical history. * Social History: T obacco Use: T obacco Use/Smoking P atient is a f ormer smoker, H ow long has it been since you last smoked? > 10 years, A dditional Findings: Tobacco Non-User F ormer smoker, currently using no form of tobacco. D rugs/Alcohol: A lcohol Screen D id you have a drink containing alcohol in the past year? Y es, H ow often did you have a drink containing alcohol in the past year? M onthly or less (1 point), H ow many drinks did you have on a typical day when you were drinking in the past year? 1 or 2 drinks (0 point), H ow often did you have 6 or more drinks on one occasion in the past year? N ever (0 point), P oints 1 , I nterpretation N egative. M iscellaneous: C affeine: yes, frequency:, 1-2 cups per day. no Children. Community involvements: yes. Exercise: yes, yoga treadmill 1 hour , yard work. Home smoke detector use: yes. Housing: owning. Marital status: . Occupation: weeks/months/years, works part-time. no Travel outside of the [place], [place]. * Medications: T akingvalACYclovir HCl 1 GM Tablet TAKE 2 TABLETS BY MOUTH TWICE A DAY FOR 1 DAY Taking valACYclovir HCl 1 GM Tablet TAKE 2 TABLETS BY MOUTH TWICE A DAY FOR 1 DAY Not-Taking/PRNEpiPen 2-Leandro 0.3 MG/0.3ML Device as directed Injection onceProAir HFA 108 (90 Base) MCG/ACT Aerosol Solution 2 puffs as needed Inhalation every 6 hrsMedication List reviewed and reconciled with the patientNot-Taking/PRN EpiPen 2-Leandro 0.3 MG/0.3ML Device as directed Injection onceNot-Taking/PRN ProAir HFA 108 (90 Base) MCG/ACT Aerosol Solution 2 puffs as needed Inhalation every 6 hrsMedication List reviewed and reconciled with the patient * Allergies: C ephalexin: hivesClindamycin: rash Objective: * Vitals: H t: 65, Wt:206, BMI:34.28, BP:102/70. * P ast Orders: L ab:Complete Blood Count Auto Diff (Order Date - 07/06/2024) (Collection Date - 07/06/2024) Value Reference Range White Blood Count 6.1 4.8-10.8 - X10*3/uL Red Blood Count 4.50 4.20-5.50 - X10*6/uL Hemoglobin 13.7 12.0-16.0 - g/dl Hematocrit 41.1 37.0-47.0 - % Mean Corpuscular Volume 91.3 80.0-98.0 - fL Mean Corpuscular Hemoglobin 30.4 27.0-33.0 - pg Mean Corpuscular HGB Conc 33.3 31.0-35.0 - g/ dl Red Cell Distribution Width 12.8 11.0-16.0 - % Platelet Count 321 160-400 - X10*3/uL Mean Platelet Volume 9.5 9.4-12.3 - fL Neutrophils Percent Auto 61.1 45-73 - % Imm Gran Pct Auto 0.7 H 0.0-0.4 - % Lymphocytes Percent Auto 26.9 20-40 - % Monocytes Percent Auto 8.4 2-11 - % Eosinophils Percent Auto 2.1 0-4 - % Basophils Percent Auto 0.8 0-2 - % NRBC Pct Auto 0.0 0.0-0.2 - /100WBC Neutrophils Absolute Auto 3.7 2.0-8.3 - x10* 3/uL Imm Gran Abs Auto 0.04 H 0.00-0.03 - X10*3/uL Lymphocytes Absolute Auto 1.6 1.2-4.9 - X10* 3/uL Monocytes Absolute Auto 0.5 0.1-1.2 - X10*3/ uL Eosinophils Absolute Auto 0.1 0.0-0.4 - X10* 3/uL Basophils Absolute Auto 0.1 0.0-0.2 - X10*3/ uL NRBC Abs Auto 0.000 0.0-0.012 - X10*3/uL L ab:Comprehensive [place]. Panel Fast (Order Date - 07/06/2024) (Collection Date - 07/06/2024) Value Reference Range Sodium 137 135-145 - mmol/L Bilirubin Total 0.8 0.0-1.0 - mg/dL Aspartate Amino Transferase 22 5-31 - U/L Alanine Aminotransferase 18 0-31 - U/L Total Protein 7.6 6.5-8.0 - g/dL Albumin Level 4.2 3.5-5.0 - g/dL Alkaline Phosphatase 45 39-117 - U/L Potassium 4.3 3.3-5.1 - mmol/L Chloride 103 96-108 - mmol/L Carbon Dioxide 27 22-29 - mmol/L Anion Gap 11 L 12-20 - Blood Urea Nitrogen 12 9-16 - mg/dL Creatinine 0.83 0.5-1.4 - mg/dL Estimated Glomerular Filt Rate > 60 - Glucose Fasting 95 60-99 - mg/dL Calcium 8.9 8.4-10.2 - mg/dL L ab:Lipid Panel (Order Date - 07/06/2024) (Collection Date - 07/06/2024) Value Reference Range Triglycerides 100 <150 - mg/dL Cholesterol 181 <200 - mg/dL LDL Cholesterol Calculated 115 H <100 - mg/dL HDL Cholesterol 46 >40 - mg/dL L ab:UA ClnCatch+Micro w/rflx Cult (Order Date - 07/06/2024) (Collection Date - 07/06/2024) Value Reference Range Color Urine Yellow - Appearance Urine Clear - PH 5.5 5.0-9.0 - Glucose Urine UA Negative Negative - mg/dL Urine Blood Negative Negative - Specific [place] - Urine 1.015 1.005-1.025 - Urine Protein Negative Neg-Trace - mg/dL Urine Ketones 15 Negative - mg/dL Nitrite Urine Negative Negative - Leukocyte Esterase Urine Negative Negative - RBC Urine 0-2 0-2 - /HPF WBC Urine 0-5 0-5 - /HPF Squamous Epithelial Cell Urine 6-10 0-2 - /HP F Bacteria Urine 1+ None Seen - Hyaline Casts Urine 0-2 0-2 - /LPF * Examination: G eneral Examination: GENERAL APPEARANCE: w ell developed, well nourished, in no acute distress. HEAD: n ormocephalic, atraumatic. EYES: p upils equal, round, reactive to light and accommodation, sclera non-icteric. EARS: n ormal. ORAL CAVITY: m ucosa moist. THROAT: c lear. NECK/THYROID: n nathan supple, full range of motion, no cervical lymphadenopathy, no bruits. SKIN: w arm and dry, no suspicious lesions. HEART: r egular rate and rhythm, S1, S2 normal, no murmurs.? LUNGS: c lear to auscultation bilaterally. BREASTS: d one by tar leveler. ABDOMEN: s oft, nontender, nondistended, bowel sounds present, normal, no organomegaly , no masses palpable. RECTAL EXAM: d one by tar leveler. FEMALE GENITOURINARY: d one by tar leveler. EXTREMITIES: n o clubbing, cyanosis, or edema. NEUROLOGIC: n onfocal, motor strength normal upper and lower extremities, sensory exam intact. Assessment: * Assessment: 1. A nnual physical exam - Z00.00 (Primary) 2 . M ild intermittent asthma without complication - J45.20 3 . R ecurrent cold sores - B00.1 4 . D epression screening - Z13.31 Plan: * Treatment: 2. M ild intermittent asthma without complication Refill EpiPen 2-Leandro Device, 0.3 MG/0.3ML, as directed, Injection, once, 1 dose, 1, Refills 4. ? Notes: stable, will continue current regtiment 3. R ecurrent cold sores Notes: will cntinue current regiment 4. D epression screening Notes: negative screen 5. O thers Refill valACYclovir HCl Tablet, 1 GM, TAKE 2 TABLETS BY MOUTH TWICE A DAY FOR 1 DAY, Orally, twoce a day, 1 days, 12, Refills 7. * Procedure Codes: * Follow Up: 1 Year * * Sign off status: Completed true * Provider: Nithya Martinez MD Date: 09/12/2023 Generated for Dluce marrero/Antoine/eTransmitting on: 1 08/30/2024 03:12 PM EST History and Physical Notes * HPI (History of Present Illness) Category Sub-Category Detail Notes Category Not es Symptom(s) patient is a 49 yo female here for yearly exam with review of recent labs and follow up of chronic issues. had sessile serrated polyp and needs repeat colonoscopy in one year Depression Screening PHQ-9 Little inte rest or pleasure in doing things: Not at all Feeling down, depressed, or hopeless: No t at all Trouble falling or staying asleep, or sl eeping too much: Not at all Feeling tired or having little energy: N ot at all Poor appetite or overeating: Not at all Feeling bad about yourself o r that you are a failure, or have let yourself or your family down: Not at all Trouble concentrating on thi ngs, such as reading the newspaper or watching television: Not at all Moving or speaking so slowly that other people could have noticed; or the opposite, being so fidgety or restless that you have been moving around a lot more than usual: Not at all Thoughts that you would be b aidan off or of hurting yourself in some way: Not at all Total Score: 0 Interpretation and Intervention Depression Dana yuan Findings: Negative Follow-Up for Depression: : review of PH Q-9 found negative result, no follow-up needed SDOH Questions SDOH Questions In the past year have you been worried about losing housing?: No In the past year have you or any family members you live with been unable to get any of the following when it was really needed? Check all that apply:: None Communication Needs Communication Needs Does the patient have a hearing impairment: No Does the patient have a vision impairmen t?: Yes If yes, what is the vision impairment?: Glasses Does the patient have a cognition impair ment?: No Examination Category Sub-Category Detail Notes Category Not es General Examination GENERAL APPEARANCE: well dev eloped, well nourished, in no acute distress HEAD: normocephalic, atrau matic EYES: pupils equal, round, reactive to light and accommodation, sclera non-icteric EARS: normal THROAT: clear NECK/THYROID: neck supple, full ra nge of motion, no cervical lymphadenopathy, no bruits HEART: regular rate and rhy thm, S1, S2 normal, no murmurs LUNGS: clear to auscultatio n bilaterally ABDOMEN: soft, nontender, non distended, bowel sounds present, normal, no organomegaly , no masses palpable NEUROLOGIC: nonfocal, motor stre ngth normal upper and lower extremities, sensory exam intact SKIN: warm and dry, no anel picious lesions EXTREMITIES: no clubbing, cyanosi s, or edema BREASTS: done by tar leveler RECTAL EXAM: done by tar leveler FEMALE GENITOURINARY: done by tar leveler ORAL CAVITY: mucosa moist
[2025-06-29 13:04] LABS: MANUAL DIFF FLAG NO
[2025-06-29 13:34] LABS: Hematocrit 41.6 % (37.0-47.0); Hemoglobin 14.1 g/dl (12.0-16.0); Imm Gran Abs Auto 0.02 X10*3/uL (0.00-0.03); Imm Gran Pct Auto 0.3 % (0.0-0.4); Lymphocytes Absolute Auto 2.1 X10*3/uL (1.2-4.9); Mean Corpuscular HGB Conc 33.9 g/dl (31.0-35.0); Mean Corpuscular Hemoglobin 29.9 pg (27.0-33.0); Mean Corpuscular Volume 88.3 fL (80.0-98.0); NRBC Abs Auto 0.000 X10*3/uL (0.0-0.012); NRBC Pct Auto 0.0 /100WBC (0.0-0.2); Platelet Count 320 X10*3/uL (160-400); Red Blood Count 4.71 X10*6/uL (4.20-5.50); White Blood Count 6.5 X10*3/uL (4.8-10.8)
[2025-06-29 13:52] LABS: Appearance Urine Clear; Glucose Urine UA Negative (Negative); PH 7.0 (5.0-9.0); Specific Gravity - Urine 1.010 (1.005-1.025)
[2025-06-29 14:35] LABS: Alanine Aminotransferase 28 U/L (0-31); Albumin Level 4.6 g/dL (3.5-5.0); Alkaline Phosphatase 54 U/L (39-117); Anion Gap 12 (12-20); Aspartate Amino Transferase 26 U/L (5-31); Blood Urea Nitrogen 13 mg/dL (9-16); Calcium 9.0 mg/dL (8.4-10.2); Carbon Dioxide 25 mmol/L (22-29); Chloride 105 mmol/L (96-108); Cholesterol 218 mg/dL (<200); Estimated Glomerular Filt Rate > 60; HDL Cholesterol 49 mg/dL (>40); Potassium 4.4 mmol/L (3.3-5.1); Sodium 138 mmol/L (135-145); Total Protein 7.8 g/dL (6.5-8.0); Triglycerides 184 mg/dL (<150)
--- OUTSIDE RECORDS SUMMARY | 2025-06-29 15:11 | XMS_ITS | Patient Health Record ---
Author Organization Erik Martinez MD Address [address] [place], [place] [id number] Care Team Providers Care Director Of Global Sales Name Role Phone Erik Martinez Primary Care Provider Allergies Allergen (clinical drug ingredient) Drug/Non Drug Allergy documented on EMR Reaction Allergy Type Onset Date Status clindamycin Clindamycin rash Drug Allergy Act sheila cephalexin Cephalexin hives Drug Allergy Activ e Results Component Value Reference Range Notes Complete Blood Count Auto Di ff Reviewed date:07/06/2024 05:11:16 PM Interpretation: Performing Lab:[facility], [address] [place] [phone] Notes/Report: White Blood Count 6.1 4.8-10.8 X10*3/uL [...] NRBC Abs Auto 0.000 0.0-0.012 X10*3/uL Comprehensive [place]. Panel Fa st Reviewed date:07/06/2024 05:11:31 PM Interpretation: Performing Lab:[facility], [address] [place] [phone] Notes/Report: Sodium 137 135-145 mmol/L Potassium 4.3 [...] Panel Reviewed date:07/06/2024 05:04:29 PM Interpretation: Performing Lab:[facility], [address] [place] [phone] Notes/Report: Triglycerides 100 <150 mg/dL Desirable Triglyceride: [...] t Reviewed date:07/06/2024 05:11:49 PM Interpretation: Performing Lab:[facility], [address] [place] [phone] Notes/Report: Urine, Clean Catch Color Urine Yellow Appearance Urine Clear PH 5.5 5.0-9.0 Glucose Urine UA Negative Negative mg/dL Urine Blood Negative Negative Specific [place] - Urine 1.015 1.005-1.025 Urine Protein Negative Neg-Trace mg/dL Urine Ketones 15 Negative mg/dL Nitrite Urine Negative Negative Leukocyte Esterase Urine Negative Negative RBC Urine 0-2 0-2 /HPF WBC Urine 0-5 0-5 /HPF Squamous Epithelial Cell Urine 6-10 0-2 /HPF Bacteria Urine 1+ None Seen Hyaline Casts Urine 0-2 0-2 /LPF Ur Preg Test Reviewed date:07/07/2024 03:51:52 PM Interpretation: Performing Lab:[facility], [address] [place] [phone] Notes/Report: Urine NEGATIVE NEGATIVE This test was developed to detect early . False negative results may occur after the 5th - 7th week of when using this test method. If clinically indicated, consider a serum hCG. Pathology Reviewed date:07/09/2024 01:50:46 PM Interpretation: Performing Lab:[facility], [address] [place] [phone] Notes/Report: - -------- Name: Kira Egan Age/Sex: 49/F : 1975 [id number] Unit#: [id number] Attend Dr: Baldev Walters MD Re07/07/24 Status : [facility] Location: [facility] Disch: - -------- SPEC : [id number] RECD : 07/07/24 STATUS: SPEEDY BRISENO NUM: [id number] VINEET: 07/07/24 [facility] DR: Baldev Walters MD ENTERED: 07/07/24-1014 SP TYPE: Surgical OTHR DR: Erik Martinez MD ORDERED: HE Stain/6, Gross Micro L4/2 Diagnosis A. Colon, distal ascending, polypectomy: Sessile serrated lesion/polyp; negative for cytologic dysplasia. B. Colon, transverse , polypectomy: Hyperplastic mucosal polyp. Clinical History Pre-Op Dx: Screening Post-Op Dx: Polyps, diverticulosis, hemorrhoids Microscopic Description A, B. Microscopic sections reviewed. Material Received A. Distal ascending colon polyp B. Transverse colon polyp Gross Description Received in two parts. Part A: Received in formalin labeled ?distal ascending colon polyp? is a 0.9 x 0.6 x 0.4 cm velvety meyer-red polypoid portion of tissue. The resected base is inked and the specimen is sectioned and entirely submitted in a cassette labeled A. Part B: Received in formalin labeled ?transverse colon polyp? is a 1.2 x 0.5 x 0.4 cm congested and hemorrhagic meyer red papular tissue fragment. The resected base inked and the specimen is sectione d and entirely submitted in a cassette labeled B. CEDS Copies To: Erik Martinez MD [facility] [address] [place] [address] [place] [id number] CONTINUED ON NEXT PAGE - -------- Name: Kira Egan Age/Sex: 49/F : 1975 Unit#: [id number] Attend Dr: Baldev Walters MD Re07/07/24 Status : [facility] Location: [facility] Disch: - -------- SPEC : [id number] RECD : 07/07/24 STATUS: SPEEDY BRISENO NUM: [id number] VINEET: 07/07/24 [facility] DR: Baldev Walters MD ENTERED: 07/07/24-1015 SP TYPE: Surgical OTHR DR: Erik Martinez MD ORDERED: HE Stain/6, Gross Micro L4/2 Copies To: (Continued) Baldev Walters MD [address] [place] [address] - -------- Signed (signature on file) Ac Cedillo MD 07/09/24 1008 - -------- END OF REPORT Complete Blood Count Auto Di ff (Not yet reviewed by provider) Interpretation: Performing Lab:[facility], [address] [place] [address], [facility] [place] [address] Notes/Report: White Blood Count 6.5 4.8-10.8 X10*3/uL Red Blood Count 4.71 4.20-5.50 X10*6/uL Hemoglobin 14.1 12.0-16.0 g/dl Hematocrit 41.6 37.0-47.0 % Mean Corpuscular Volume 88.3 80.0-98.0 fL Mean Corpuscular Hemoglobin 29.9 27.0-33.0 pg Mean Corpuscular HGB Conc 33.9 31.0-35.0 g/dl Red Cell Distribution Width 12.0 11.0-16.0 % Platelet Count 320 160-400 X10*3/uL Mean Platelet Volume 8.7 9.4-12.3 fL Neutrophils Percent Auto 60.0 45-73 % Imm Gran Pct Auto 0.3 0.0-0.4 % Lymphocytes Percent Auto 31.5 20-40 % Monocytes Percent Auto 5.5 2-11 % Eosinophils Percent Auto 2.1 0-4 % Basophils Percent Auto 0.6 0-2 % NRBC Pct Auto 0.0 0.0-0.2 /100WBC Neutrophils Absolute Auto 3.9 2.0-8.3 x10*3/u L Imm Gran Abs Auto 0.02 0.00-0.03 X10*3/uL Lymphocytes Absolute Auto 2.1 1.2-4.9 X10*3/u L Monocytes Absolute Auto 0.4 0.1-1.2 X10*3/uL Eosinophils Absolute Auto 0.1 0.0-0.4 X10*3/u L Basophils Absolute Auto 0.0 0.0-0.2 X10*3/uL NRBC Abs Auto 0.000 0.0-0.012 X10*3/uL Comprehensive [place]. Panel Fa (Not yet reviewed by provider) Interpretation: Performing Lab:[facility], [address] [place] [phone] Notes/Report: Sodium 138 135-145 mmol/L Potassium 4.4 3.3-5.1 mmol/L Chloride 105 96-108 mmol/L Carbon Dioxide 25 22-29 mmol/L Anion Gap 12 12-20 Blood Urea Nitrogen 13 9-16 mg/dL Creatinine 0.76 0.5-1.4 mg/dL Estimated Glomerular Filt Rate > 60 Chronic Kidney Disease: Estimated GFR < 60 mL/min/1.73m2 Severe Kidney Disease: Estimated GFR < 15 mL/min/1.73m2 Glucose Fasting 96 60-99 mg/dL Calcium 9.0 8.4-10.2 mg/dL Bilirubin Total 0.7 0.0-1.0 mg/dL Aspartate Amino Transferase 26 5-31 U/L Alanine Aminotransferase 28 0-31 U/L Total Protein 7.8 6.5-8.0 g/dL Albumin Level 4.6 3.5-5.0 g/dL Alkaline Phosphatase 54 39-117 U/L Lipid Panel (Not yet reviewe d by provider) Interpretation: Performing Lab:[facility], [address] [place] [phone] Notes/Report: Triglycerides 184 <150 mg/dL Desirable Triglyceride: less than 150 mg/dL Borderline High Triglyceride 150-199 mg/dL High Triglyceride: 200-499 mg/dL Very High Triglyceride: greater than or equal to 5OO mg/dL Cholesterol 218 <200 mg/dL Desirable Cholesterol: less than 200 mg/dL Borderline High Cholesterol: 200-239 mg/dL High Cholesterol: greater than 239 mg/dL LDL Cholesterol Calculated 133 <100 mg/dL Desirable LDL: less than 100 mg/dL Near Optimal/Above Optimal LDL: 110-129 mg/dL Borderline High LDL: 130-159 mg/dL High LDL: 160-189 mg/dL Very High LDL: greater than or equal to 190 mg/dL HDL Cholesterol 49 >40 mg/dL Desirable HDL: greater than 40 mg/dL Note: This HDL assay may give artificially low results in patients with liver disease. Vitamin D 25-OH Total (Not y et reviewed by provider) Interpretation: Performing Lab:[address] [phone] Notes/Report: Vitamin D 25-OH Total 29.5 >30 ng/mL Health Based Reference Values* < 20 ng/mL Deficient 20-30 ng/mL Insufficient > 30 ng/mL Sufficient *Thai LEOS. N Engl J Med. 2007;357:266-280 There is no well-established upper level of normal vitamin D levels. Some laboratories use 50 ng/mL as an upper limit of normal. However, toxicity is patient-dependent and may occur at any level. Careful correlation with the patient's presentation is necessary and, if there is concern for vitamin D toxicity, treatment should be considered irrespective of the serum level. Care must be taken in interpreting Vitamin D results from different laboratories and methodologies. Published data demonstrated that results from patients undergoing hemodialysis may show a negative bias when tested with various automated 25-OH vitamin D assays when compared to LC-MS/MS. When testing samples from patients whose predominant form of Vitamin D is Vitamin D2, such as patients receiving Vitamin D2 supplementation, results that are subtherapeutic should be confirmed with another method such as LC-MS/MS. UA ClnCatch+Micro w/rflx Cul t (Not yet reviewed by provider) Interpretation: Performing Lab:[address] [phone] Notes/Report: Urine, Clean Catch Color Urine Yellow Appearance Urine Clear PH 7.0 5.0-9.0 Glucose Urine UA Negative Negative mg/dL Urine Blood Negative Negative Specific [place] - Urine 1.010 1.005-1.025 Urine Protein Negative Neg-Trace mg/dL Urine Ketones Negative Negative mg/dL Nitrite Urine Negative Negative Leukocyte Esterase Urine Negative Negative RBC Urine 0-2 0-2 /HPF WBC Urine 0-5 0-5 /HPF Squamous Epithelial Cell Urine 6-10 0-2 /HPF Bacteria Urine 1+ None Seen Hyaline Casts Urine 0-2 0-2 /LPF Reason For Referral No Information Medications Medication SIG (Take, Route, Frequency, Duration) [...] twoce a day for 1 days Active Immunizations Vaccine Route Administration Date Status Comme [facility] Flu Vaccine IM Intramuscular 05/04/2013 Administered [facility]IE LOW PPSV23 (Pnemovax) IM Intramuscular 05/04/2013 Administered [facility] Fluarix Quadrivalent IM Intramuscular 05/03/2017 Administered pt was given th e vaccine at [facility] in [place]. Fluarix Quadrivalent IM Intramuscular 04/27/2018 Administered Fluarix Quadrivalent Unknown 03/29/2019 Administered [facility] PPSV23 (Pnemovax) IM Intramuscular 05/03/2019 Administered Fluarix Quadrivalent Unknown 05/01/2020 Administered [facility] Fluarix Quadrivalent IM Intramuscular 05/21/2021 Administered SARS-COV-2 Pfizer Unknown 11/29/2020 Administered SARS-COV-2 Pfizer Unknown 12/20/2020 Administered Prevnar 13 IM Intramuscular 05/24/2021 Administered Fluarix Quadrivalent IM Intramuscular 05/21/2022 Administered Fluarix Quadrivalent IM Intramuscular 06/10/2023 Administered Fluarix Quadrivalent - 150 IM Intramuscular 07/06/2024 Administered Flu Vaccine Unknown 05/07/2014 Pending Social History Tobacco Use: Social History Observation [...] Never (0 point) Points 1 Interpretation Negative Problems Problem Type SNOMED Code ICD Code Onset Dates Problem Status W/U Status Risk Notes Problem 56813071 Multiple sclerosis (G35) Active confirmed Problem 191811309 Mild intermitten t asthma without complication (J45.20) Active confirmed Vital Signs Blood pressure diastolic 70 mm Hg 07/12/2024 Height 65 in 07/12/2024 Blood pressure systolic 102 mm Hg 07/12/2024 Weight 206 lbs 07/12/2024 BMI 34.28 kg/m2 07/12/2024 Procedures Procedure Date Ordered Date Performed Result Body Sit e Colonoscopy, Screening 07/07/2024 07/07/2024 repeat 3y Encounters Encounter Location Date Provider Diagnosis Erik Martinez MD [address] [place] [address] Drive [address] [place] [phone] 07/06/2024 Erik Martinez Blood tests for routine general physical examination Z00.00 ; Encounter for immunization Z23 and Multiple sclerosis G35 Erik Martinez MD [address] [place] [address] Drive [address] [place] [phone] 07/12/2024 Erik Martinez Mild intermittent asthma without complication J45.20 ; Annual physical exam Z00.00 ; Recurrent cold sores B00.1 and Depression screening Z13.31 Assessments Encounter Date Diagnosis (ICD Code) Assessment Notes Treatment Notes Treatment Clinical Notes Section Notes 07/06/2024 Blood tests for routine general physical examination (ICD-10 - Z00.00) 07/06/2024 Encounter for immunization (ICD-10 - Z23) 07/12/2024 Mild intermittent asthma without complication (ICD-10 - J45.20) stable, will continue current regtiment 07/12/2024 Annual physical exam (ICD-10 - Z00.00) labs reviewed and discused with patient 07/06/2024 Multiple sclerosis (ICD-10 - G35) 07/12/2024 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 Panel Fast 5 Lipid Panel 06/29/2025 Vitamin D 25-OH Total 06/29/2025 UA ClnCatch+Micro w/rflx Cult 06/29/2025 Next Appt Details Provider Name:Erik Joaquin ier, 07/14/2025 02:30:00 PM, [address] [place] [address], [address], [place], [place], [phone], Insurance Providers Payer Name Payer Address Payer Phone Subscriber Number Group Number Insured Name Patient Relationship to Insured Coverage Start Date Coverage End Date [address] [facility] [place] [phone] [id number] Kira Whitt Self - patient is the insured Medical (General) History Medical History History ICD Code Pap Smear 02/2013 with Gladys Sweet @ [facility] sessile serated polyp 2023 repeat in one year
--- OUTSIDE RECORDS SUMMARY | 2025-06-29 15:11 | XMS_ITS | Patient Health Record ---
Author Organization [facility] Address [address] [place] [address] Care Team Providers Care [employer] Consultant Name Role Phone Erik Martinez MD Primary Care Provider Baldev Lisa [phone] Allergies Allergen (clinical drug ingredient) Drug/Non Drug Allergy documented on EMR Reaction Allergy Type Onset Date Status Bee Sting Unknown Allergy Active Results Component Value Reference Range Notes Pathology (Not yet reviewed by provider) Interpretation: Performing Lab:[address] [phone] Notes/Report: Ur Preg Test Reviewed date:07/07/2024 01:41:07 PM Interpretation: Performing Lab:[address] [phone] Notes/Report: Urine NEGATIVE NEGATIVE This test was developed to detect early . False negative results may occur after the 5th - 7th week of when using this test method. If clinically indicated, consider a serum hCG. Reason For Referral No Information Medications Medication SIG (Take, Route, Frequency, Duration) Notes Start Date End Date Status Vitamin D 50 MCG (1999) Tablet 1 tablet Orally Once a day; Duration: 30 day(s) 03/26/2024 Active Zinc 22.5 MG Tablet as directed Orally 03/26/2024 Active Lysine 500 MG Tablet as directed Orally 03/26/2024 Active Cetirizine HCl 10 MG Tablet 1 tablet Orally Once a day; Duration: 30 day(s) 03/26/2024 Active Magnesium 250 MG Tablet 1 tablet with a meal Orally Once a day; Duration: 30 day(s) 03/26/2024 Active Immunizations Vaccine Route Administration Date Status Comme nts Influenza Unknown 05/20/2023 Administered Social History Tobacco Use: Social History Observation Description Date Details (start date - stop date) Never Smoker NA - NA Social History Drugs/Alcohol: Social Info Question Answer Notes Alcohol Screen Did you have a drink containing alcohol in the past year? No Points 0 Interpretation Negative Tobacco Use: Social Info Question Answer Notes Tobacco Use/Smoking Patient is a nonsmoker Additional Details Category Social Info Options Details Miscellaneous: Marital status: Occupation: [employer] Notes: Nonsmoker; no sig alcohol Problems Problem Type SNOMED Code ICD Code Onset Dates Problem Status W/U Status Risk Notes Problem Colon cancer screening (523196400) Colon cancer screening (Z12.11) Active confirmed Problem Pre-procedure evaluation check (536369356) Encounter for other preprocedural examination (Z01.818) Active confirmed Problem Diverticular disease of colon (584998538) Diverticulosis of large intestine without perforation or abscess without bleeding (K57.30) Active confirmed Encounters Encounter Location Date Provider Diagnosis [facility] [address] [place] [id number] 07/07/2024 Baldev Walters Colon cancer scree lissy [...] hemorrhoids (ICD-10 - K64.8) Plan Of Treatment Pending Test Test Name Order Date Pathology 07/07/2024 Future Test Test Name Order Date COLONOSCOPY 03/26/2024 Insurance Providers Payer Name Payer Address Payer Phone Subscriber Number Group Number Insured Name Patient Relationship to Insured Coverage Start Date Coverage End Date [facility] [address] [place] [phone] [id number] MALIK DALAL Self - patient is the insured Medical (General) History Medical History History ICD Code Multiple sclerosis--on no meds as of the 02/2024 OV Denies RI,DM,CVA,Lung disease,renal dise ase Surgical History Surgery Date(Month/Year) [place] teeth extraction 1992
== END 2025-06-29 12:51 | disposition home or self-care (01) ==
LOC: HO.LAB 12:50
PROVIDERS: PCP Internal Medicine; Visit Provider Internal Medicine
DX: Z00.00 Encounter for general adult medical examination without abnormal findings (principal); Z13.6 Encounter for screening for cardiovascular disorders; Z13.21 Encounter for screening for nutritional disorder; Z13.0 Encounter for screening for diseases of the blood and blood-forming organs and certain disorders involving the immune mechanism
CPT/HCPCS: 36415; 80053; 80061; 81001; 82306; 85025